=== PATIENT | female | born 1950 | race Caucasian/White ===

== ENCOUNTER 2018-02-21 12:03 | Emergency (ER) | payer OTHER ==
[~2018-02-21] VITALS: Ht 165.1 cm; Wt 81.2 kg
--- NOTE | 2018-02-21 12:04 | NUR ---
ESCOBAR FROM HOME DT HEADACHE AND NECK PAIN SINCE THIS MORNING,. PATIENT REPORTED HAVING CHILLS THIS AM. PATIENT IS AWAKE AND ALERT, APPEARS IN NO DISTRESS. RESPIRATION EVEN AND UNLABORED. AFEBRILE. VSS
[2018-02-21] MEDS ORDERED: LEVO50TA8 PO (12:14)
[2018-02-21] MEDS ORDERED: IV NS 0.9% 1,000 ML BAG IV ONE (12:30)
[2018-02-21 12:34] LABS: BASOPHILS # (AUTO) 0.1 /CMM (0.0-0.2); BASOPHILS % (AUTO) 1.4 % (0.0-2.0); EOSINOPHILS % (AUTO) 0.3 % (0.0-6.0); HEMATOCRIT 40 % (33-45); HEMOGLOBIN 13.8 g/dL (11.5-14.8); LYMPHOCYTES # (AUTO) 0.7 /CMM (0.8-4.8); LYMPHOCYTES % (AUTO) 7.1 % (20.0-44.0); MEAN CORPUSCULAR HGB CONC 35 g/dl (31.0-36.0); MEAN CORPUSCULAR VOLUME 90 fL (82-100); MONOCYTES # (AUTO) 0.5 /CMM (0.1-1.30); MONOCYTES % (AUTO) 5.2 % (2.0-12.0); NEUTROPHILS # (AUTO) 9.1 /CMM (1.8-8.9); PLATELET COUNT (AUTO) 102 /CMM (150-450); RDW COEFFICIENT OF VARIATION 12.5 (11.5-15.0); RED BLOOD CELL COUNT(AUTO) 4.43 MIL/uL (4.0-5.2); WHITE BLOOD COUNT (AUTO) 10.4 K/uL (4.3-11.0)
--- NOTE | 2018-02-21 12:44 | NUR ---
URINE SAMPLE SENT TO LAB
[2018-02-21 12:45] LABS: ALANINE AMINOTRANSFERASE 20 U/L (12-78); ALBUMIN 3.7 g/dL (3.4-5.0); ALKALINE PHOSPHATASE 125 U/L (46-116); ASPARTATE AMINOTRANSFERASE 18 U/L (15-37); BILIRUBIN,DIRECT 0.2 mg/dL (0.0-0.2); BILIRUBIN,TOTAL 1.2 mg/dL (0.2-1.0); CALCIUM, SERUM 9.7 mg/dL (8.5-10.1); CARBON DIOXIDE 26 mmol/L (21-32); CHLORIDE 103 mmol/L (98-107); CREATININE 0.9 mg/dL (0.6-1.3); GLUCOSE 144 mg/dL (74-106); POTASSIUM 3.8 mmol/L (3.5-5.1); SODIUM SERUM 136 mmol/L (136-145); TOTAL PROTEIN, SERUM 7.6 g/dL (6.4-8.2); UREA NITROGEN, BLOOD 20 mg/dL (7-18)
[2018-02-21 12:47] LABS: INR 0.9 (0.85-1.15)
[2018-02-21 12:56] LABS: APPEARANCE,URINE Slightly Cloudy (CLEAR); BILIRUBIN,URINE Negative (NEGATIVE); BLOOD, URINE Moderate Ery/uL (NEGATIVE); COLOR,URINE Yellow (YELLOW); KETONES,URINE Trace (NEGATIVE); LEUKOCYTE ESTERASE ,URINE Moderate (NEGATIVE); NITRITE, URINE Positive (NEGATIVE); PROTEIN,URINE 100 mg/dl (NEGATIVE); UGLUCOSE Negative (NEGATIVE); UROBILINOGEN,URINE 0.2 EU/dL (0.2)
--- NOTE | 2018-02-21 13:03 | NUR ---
PATIENT REFUSED BLOOD PRESSURE RECHECK. EXPLAINED RISKS AND BENEFITS.
[2018-02-21 13:08] LABS: TROPONIN I < 0.017 ng/mL (0.00-0.056)
[2018-02-21 13:09] LABS: BACTERIA,URINE 4+ /HPF (None Seen); SQUAMOUS EPITHELIAL CELL,UR Few /HPF (None Seen); WBC,URINE 21-50 /HPF (0-3)
--- NOTE | 2018-02-21 13:49 | NUR ---
Patient discharged to home in stable condition. Written and verbal after care instructions given. Patient verbalizes understanding of instruction.IV removed. Catheter intact and site benign. Pressure and 4x4 applied to site. No bleeding noted.
[2018-02-21 13:50] VITALS: BP 124/80
== END 2018-02-21 13:50 | disposition home or self-care (01) ==
LOC: ER 12:05
DX: N39.0 Urinary tract infection, site not specified (principal); E03.9 Hypothyroidism, unspecified; R79.1 Abnormal coagulation profile; Z88.0 Allergy status to penicillin; Z88.5 Allergy status to narcotic agent; Z60.2 Problems related to living alone
CPT/HCPCS: 36415; 80048-TC; 80076-TC; 81000-TC; 83605-TC; 84484-TC; 85025-TC; 85730-TC; 87040-TC; 87086-TC; 87186-TC; A4606; J7030; Z7610

== ENCOUNTER 2022-02-23 15:53 | Emergency (ER) | payer OTHER ==
[~2022-02-23] VITALS: Ht 167.6 cm; Wt 77.1 kg
[~2022-02-23 15:53] MED LIST: LEVO50TA8 PO
--- NOTE | 2022-02-23 18:50 | NUR ---
Approx 1-1.5 in abrasion on posterior surface on Rt forearm cleansed with copius amounts NS/Betadine anticeptic soln. All dried blood removed from wound. Bacitracin applied with adaptix, sterile bulky 4x4s and wrapped with 3 in kerlix. pt had good cap refil and cms before and after application of wound dressing. Education on proper management and wound care given. Pt acknowledged understanding of instructions.
--- NOTE | 2022-02-23 19:10 | NUR ---
Pt given DC instructios and confirmed understanding of instructions. last Vs stable, PE WNL, all questions answered before signing out. Pt wheeled out to taxi by EMT without difficulty. No s/sxof distress present. Pt very happy with services rendered/
[2022-02-23 20:36] VITALS: BP 132/85
== END 2022-02-23 19:20 | disposition home or self-care (01) ==
LOC: ER 15:59
DX: S00.03XA Contusion of scalp, initial encounter (principal); M79.7 Fibromyalgia; E03.9 Hypothyroidism, unspecified; Z88.8 Allergy status to other drugs, medicaments and biological substances; Z60.2 Problems related to living alone; Z79.899 Other long term (current) drug therapy; W01.0XXA Fall on same level from slipping, tripping and stumbling without subsequent striking against object, initial encounter; Y93.89 Activity, other specified; Y92.89 Other specified places as the place of occurrence of the external cause; Y99.8 Other external cause status
CPT/HCPCS: 70450-TC; 72125-TC

== ENCOUNTER 2022-07-05 13:23 | Emergency (ER) | payer OTHER ==
[~2022-07-05] VITALS: Ht 167.6 cm; Wt 77.1 kg
--- NOTE | 2022-07-05 14:16 | NUR ---
REceived pt 71 yrs female came from home c/o painfuly in [facility] area awake and alert
--- NOTE | 2022-07-05 14:17 | NUR ---
Examine by provider
--- NOTE | 2022-07-05 14:34 | NUR ---
IV line established on LAC g20
--- NOTE | 2022-07-05 15:15 | NUR ---
PT C/O unable to urinate since this morning Inserted F/C FR # 16 no diffeculty OUT PUT 450 ML UA sent to lab
[2022-07-05 15:22] LABS: BASOPHILS % (AUTO) 0.3 % (0.0-2.0); EOSINOPHILS % (AUTO) 1.2 % (0.0-6.0); HEMATOCRIT 41 % (33-45); HEMOGLOBIN 13.6 g/dL (11.5-14.8); LYMPHOCYTES # (AUTO) 0.8 K/uL (0.8-4.8); LYMPHOCYTES % (AUTO) 13.1 % (20.0-44.0); MEAN CORPUSCULAR HGB CONC 33 g/dl (31.0-36.0); MEAN CORPUSCULAR VOLUME 91 fL (82-100); MONOCYTES # (AUTO) 0.4 K/uL (0.1-1.30); MONOCYTES % (AUTO) 6.9 % (2.0-12.0); NEUTROPHILS % (AUTO) 78.5 % (43.0-81.0); PLATELET COUNT (AUTO) 108 K/uL (150-450); RED BLOOD CELL COUNT(AUTO) 4.51 MIL/uL (4.0-5.2); WHITE BLOOD COUNT (AUTO) 6.4 K/uL (4.3-11.0)
[2022-07-05 15:38] LABS: CALCIUM, SERUM 9.5 mg/dL (8.5-10.1); CREATININE 0.9 mg/dL (0.6-1.3); POTASSIUM 3.7 mmol/L (3.5-5.1)
[2022-07-05 15:45] LABS: ALBUMIN 3.6 g/dL (3.4-5.0); BILIRUBIN,DIRECT 0.1 mg/dL (0.0-0.2); BILIRUBIN,TOTAL 0.5 mg/dL (0.2-1.0); TOTAL PROTEIN, SERUM 6.9 g/dL (6.4-8.2)
[2022-07-05 16:05] LABS: BILIRUBIN,URINE NEGATIVE (NEGATIVE); COLOR,URINE YELLOW (YELLOW); LEUKOCYTE ESTERASE ,URINE NEGATIVE (NEGATIVE); NITRITE, URINE NEGATIVE (NEGATIVE); PH,URINE 5.5 (5.0-8.0); PROTEIN,URINE NEGATIVE (NEGATIVE); UGLUCOSE NEGATIVE (NEGATIVE); UROBILINOGEN,URINE 0.2 EU/dL (0.2)
--- NOTE | 2022-07-05 16:35 | NUR ---
PT requsted to D/C FC DONE 10ML WATER OUT F/C BALLON DEFLATED
--- NOTE | 2022-07-05 16:39 | NUR ---
CALLED JESSICA AT [phone], LEFT .
--- NOTE | 2022-07-05 16:41 | NUR ---
CALLED MALLORY LOPEZ 20 MIN.
[2022-07-05 17:45] VITALS: BP 103/61
== END 2022-07-05 17:46 | disposition home or self-care (01) ==
LOC: ER 13:26
DX: R33.9 Retention of urine, unspecified (principal); M79.7 Fibromyalgia; E03.9 Hypothyroidism, unspecified; Z88.0 Allergy status to penicillin; Z88.5 Allergy status to narcotic agent; Z60.2 Problems related to living alone; Z79.899 Other long term (current) drug therapy
CPT/HCPCS: 36415; 80048-TC; 80076-TC; 83690-TC; 85025-TC

== ENCOUNTER 2022-11-02 09:25 | Emergency (ER) | payer OTHER ==
[~2022-11-02] VITALS: Ht 162.6 cm; Wt 54.4 kg
--- NOTE | 2022-11-02 09:30 | NUR ---
RECEIVED PT 72 YRS FEMALE Came by adela from home s/p tripe and fell lauceration on RT SIDE OF forhead awake and alert no loss contion
--- NOTE | 2022-11-02 09:45 | NUR ---
SEEN BY DR. Olguin
--- NOTE | 2022-11-02 09:50 | NUR ---
BLOOD DROW BY LAB TACH
--- NOTE | 2022-11-02 09:55 | NUR ---
OUND CLEAN AND IRREGATED BY LAB TACH
[2022-11-02] MEDS ORDERED: ACETAMINOPHEN ES 500 MG TABLET PO ONE (10:00)
--- NOTE | 2022-11-02 10:00 | NUR ---
TO CT SCAN OF HEAD via obdulia rabago vs
[2022-11-02] MEDS ORDERED: ACETAMINOPHEN ES 500 MG TABLET ONE (10:07)
[2022-11-02] MEDS ORDERED: LIDOCAINE 0.5%-EPI 1:200,000 50 ML VIAL ONE (10:07)
[2022-11-02 10:19] LABS: BASOPHILS % (AUTO) 0.3 % (0.0-2.0); EOSINOPHILS % (AUTO) 0.4 % (0.0-6.0); HEMATOCRIT 41 % (33-45); HEMOGLOBIN 13.5 g/dL (11.5-14.8); LYMPHOCYTES # (AUTO) 0.6 K/uL (0.8-4.8); LYMPHOCYTES % (AUTO) 9.1 % (20.0-44.0); MEAN CORPUSCULAR HGB CONC 33 g/dl (31.0-36.0); MEAN CORPUSCULAR VOLUME 93 fL (82-100); MONOCYTES # (AUTO) 0.4 K/uL (0.1-1.30); MONOCYTES % (AUTO) 5.8 % (2.0-12.0); NEUTROPHILS # (AUTO) 5.1 K/uL (1.8-8.9); NEUTROPHILS % (AUTO) 84.4 % (43.0-81.0); PLATELET COUNT (AUTO) 102 K/uL (150-450); RED BLOOD CELL COUNT(AUTO) 4.45 MIL/uL (4.0-5.2); WHITE BLOOD COUNT (AUTO) 6.1 K/uL (4.3-11.0)
[2022-11-02 10:27] LABS: CALCIUM, SERUM 9.7 mg/dL (8.5-10.1); CARBON DIOXIDE 28 mmol/L (21-32); CHLORIDE 107 mmol/L (98-107); CREATININE 0.9 mg/dL (0.6-1.3); GLUCOSE 121 mg/dL (74-106); POTASSIUM 4.3 mmol/L (3.5-5.1); SODIUM SERUM 140 mmol/L (136-145); UREA NITROGEN, BLOOD 17 mg/dL (7-18)
--- NOTE | 2022-11-02 10:40 | NUR ---
AT BED SIDE STABLE APPLE ON RT SIDE OF FORHEAD tolorated procedure skin intact and dry
--- NOTE | 2022-11-02 10:55 | NUR ---
Allegra prado in [facility] - 11/02/22 at 1126 by ORACIO WOUND CLEAN AND IRREGATED BY LAB TACH
--- NOTE | 2022-11-02 10:56 | NUR ---
ROSARIO [phone] COUSIN.
--- NOTE | 2022-11-02 11:27 | NUR ---
CALLED JESSICA PALMER LEFT MASSAGE IN [facility]
--- NOTE | 2022-11-02 11:59 | NUR ---
CALLED GUALBERTO LEFT MASSAGE
--- NOTE | 2022-11-02 13:14 | NUR ---
ASSISST PT TO AMBLATE PT UNSTAADY AT THIS TIME
--- NOTE | 2022-11-02 13:39 | NUR ---
PT UNABLE TO AMBLATE WITH WALKER DR JONY MCKEON PLAN TO ADMIT PT INPT CALLED AJI ( JESSICA PALMER ) ABOUT [facility]KE PENNY
--- NOTE | 2022-11-02 13:56 | NUR ---
[facility] [phone]
--- NOTE | 2022-11-02 13:59 | NUR ---
COVID SWAB SENT TO LAB
--- NOTE | 2022-11-02 14:54 | NUR ---
[facility] [phone] CALLBACK
--- NOTE | 2022-11-02 15:21 | NUR ---
CALLED [facility] [phone] LEFT VM.
--- NOTE | 2022-11-02 16:20 | NUR ---
NO PAIN WATING FOR ROOM
--- NOTE | 2022-11-02 17:44 | NUR ---
PT AGREEABLE TO GO TO [facility]. BLS TRANSPORT WILL ARRIVE AT 2100 WITH [facility]. PER [facility] CEDILLO REGAL. [phone] [facility] [address] [id number] CALL [phone] FOR REPORT OPTION 7 EMMY ESTES.
--- NOTE | 2022-11-02 18:03 | NUR ---
CALLED [phone] HAND OFF TO( FRANKLYN BOOTH ) PT AWAKE AND ALERT NO PAIN
[2022-11-02 19:10] VITALS: BP 111/71
--- NOTE | 2022-11-02 19:25 | NUR ---
HAND OFF MENDEL BOOTH
--- NOTE | 2022-11-02 20:12 | NUR ---
PATIENT TRANSFERRED TO [facility] VIA AMBULANCE ACCOMPANIED BY 3 NATURAL GAS INSPECTOR, REPORT GIVEN TO EMT CREW, PATIENT LEFT WITH VITALS WNL.
== END 2022-11-02 20:14 ==
LOC: ER 09:54
DX: S01.01XA Laceration without foreign body of scalp, initial encounter (principal); S09.90XA Unspecified injury of head, initial encounter; W01.10XA Fall on same level from slipping, tripping and stumbling with subsequent striking against unspecified object, initial encounter; Y92.199 Unspecified place in other specified residential institution as the place of occurrence of the external cause; Z88.6 Allergy status to analgesic agent; Z88.0 Allergy status to penicillin; E03.9 Hypothyroidism, unspecified; M79.7 Fibromyalgia; R33.9 Retention of urine, unspecified; G20 Parkinson's disease; Z79.890 Hormone replacement therapy; R26.81 Unsteadiness on feet; Z20.822 Contact with and (suspected) exposure to COVID-19
CPT/HCPCS: 99285; 70450; 87426; 85025; 80048; 36415; 84484; 87081; 12001; 93005; J3490; A6403 ×2; C9803

== ENCOUNTER 2022-11-29 11:22 | Emergency (ER) | payer OTHER ==
[~2022-11-29] VITALS: Ht 170.2 cm; Wt 53.1 kg
--- NOTE | 2022-11-29 11:40 | NUR ---
RECEVED PT CAME BY PRAMDIC FOR s/p fall down and c/o pain on rt hip and lt arm awake and alert moving all extramity no pain
[2022-11-29] MEDS ORDERED: ACETAMINOPHEN ES 500 MG TABLET ONE (12:12)
[2022-11-29] MEDS ORDERED: ACETAMINOPHEN ES 500 MG TABLET PO ONE (12:30)
--- NOTE | 2022-11-29 12:35 | NUR ---
to CT SCAN
--- NOTE | 2022-11-29 13:20 | NUR ---
tolorated po intack
--- NOTE | 2022-11-29 14:11 | NUR ---
CALLED FELIPE GARCES left massge
--- NOTE | 2022-11-29 14:23 | NUR ---
Patient discharged to home in stable condition. Written and verbal after care instructions given. Patient verbalizes understanding of instruction.
--- NOTE | 2022-11-29 14:25 | NUR ---
[facility] CALLED FOR BLS TRANSPORT, ETA 75-90 MINUTES PER SKYLER.
--- NOTE | 2022-11-29 15:30 | NUR ---
D/C HOME BY AMBLANCE AWAKE AND ALERT
[2022-11-29 15:48] VITALS: BP 111/72
== END 2022-11-29 15:49 | disposition home or self-care (01) ==
LOC: ER 11:28
DX: S09.90XA Unspecified injury of head, initial encounter (principal); M25.551 Pain in right hip; G20 Parkinson's disease; E03.9 Hypothyroidism, unspecified; G51.0 Bell's palsy; Z88.0 Allergy status to penicillin; Z88.5 Allergy status to narcotic agent; W01.0XXA Fall on same level from slipping, tripping and stumbling without subsequent striking against object, initial encounter; Y93.89 Activity, other specified; Y92.89 Other specified places as the place of occurrence of the external cause; Y99.8 Other external cause status
CPT/HCPCS: 70450-TC; 72125-TC; 73502

== ENCOUNTER 2023-01-19 08:28 | Emergency (ER) | payer OTHER ==
[~2023-01-19] VITALS: Ht 170.2 cm; Wt 52.6 kg
--- NOTE | 2023-01-19 08:45 | NUR ---
Malachi LOPEZx4 able to express her concerns. Malachi states she has hx of multiple falls. Discussed plan of care, patient verbalized agreement. Crashcart at bedside rios to vital signs. Malachi proved helaht history to MD, ER team at bedside. All safety precautions taken.
[2023-01-19 08:59] LABS: BASOPHILS % (AUTO) 0.5 % (0.0-2.0); EOSINOPHILS % (AUTO) 0.8 % (0.0-6.0); HEMATOCRIT 47 % (33-45); HEMOGLOBIN 14.6 g/dL (11.5-14.8); LYMPHOCYTES # (AUTO) 1.4 K/uL (0.8-4.8); LYMPHOCYTES % (AUTO) 22.1 % (20.0-44.0); MEAN CORPUSCULAR HGB CONC 32 g/dl (31.0-36.0); MEAN CORPUSCULAR VOLUME 97 fL (82-100); MONOCYTES # (AUTO) 0.4 K/uL (0.1-1.30); MONOCYTES % (AUTO) 5.8 % (2.0-12.0); NEUTROPHILS # (AUTO) 4.6 K/uL (1.8-8.9); NEUTROPHILS % (AUTO) 70.8 % (43.0-81.0); PLATELET COUNT (AUTO) 114 K/uL (150-450); WHITE BLOOD COUNT (AUTO) 6.4 K/uL (4.3-11.0)
[2023-01-19] MEDS ORDERED: IV NS 0.9% 1,000 ML BAG IV ONE (09:00)
[2023-01-19] MEDS ORDERED: ADENOSINE 6 MG/2 ML VIAL ONE (09:00)
[2023-01-19] MEDS ORDERED: ADENOSINE 6 MG/2 ML VIAL IVP ONE (09:00)
[2023-01-19 09:07] LABS: CALCIUM, SERUM 10.1 mg/dL (8.5-10.1); CARBON DIOXIDE 26 mmol/L (21-32); CHLORIDE 104 mmol/L (98-107); CREATININE 0.9 mg/dL (0.6-1.3); GLUCOSE 109 mg/dL (74-106); POTASSIUM 4.3 mmol/L (3.5-5.1); SODIUM SERUM 137 mmol/L (136-145); UREA NITROGEN, BLOOD 17 mg/dL (7-18)
[2023-01-19 09:14] LABS: ALANINE AMINOTRANSFERASE 20 U/L (12-78); ALBUMIN 3.8 g/dL (3.4-5.0); ALKALINE PHOSPHATASE 73 U/L (46-116); ASPARTATE AMINOTRANSFERASE 26 U/L (15-37); BILIRUBIN,DIRECT 0.1 mg/dL (0.0-0.2); TOTAL PROTEIN, SERUM 7.1 g/dL (6.4-8.2)
--- NOTE | 2023-01-19 10:07 | NUR ---
CARDIOLOGY CALLED DR. JANELLE LAMA.
--- NOTE | 2023-01-19 10:16 | NUR ---
DR LUIS CREAMERY WORKER AT BEDSIDE FOR EVAL. PATIENT IS NOT ON ANY ABNORMAL CARDIAC RHYTHM PER DR LUIS AFTER COMPARING TWO DIFFERENT CARDIAC MONITORS. ER AWARE.
--- NOTE | 2023-01-19 10:30 | NUR ---
MOVE SHEET SUBMITTED.
--- NOTE | 2023-01-19 10:40 | NUR ---
COVID SWAB COLLECTED AND SENT TO LAB
--- NOTE | 2023-01-19 10:54 | NUR ---
CARLY ALEJANDRE BLOW MOLDER - [phone]. ( FAX ) [phone] . CLINICALS GIVEN
--- NOTE | 2023-01-19 12:23 | NUR ---
Spoke with pt about possible SNF placement, states she does not want to go to a facility. Would like to go home and care for herself, educated on importance of following protocol due to her multiple falls. Robin mujica she is capable of making her own decisions and placing her would be "kidnapping" . Patient aware of safety precautions and would like to proceed with discharge to home asking for a cab to take her. Patient is AOx4.
--- NOTE | 2023-01-19 12:26 | NUR ---
CARLY CEDILLO [phone]
--- NOTE | 2023-01-19 14:06 | NUR ---
PT PASSED ROAD TEST WITH WALKER AND NO ASSISTANCE FROM STAFF, ER DOCTOR AND CM CARLY NOTIFIED
--- NOTE | 2023-01-19 14:09 | NUR ---
CALLED [facility] ETA 15:30
--- NOTE | 2023-01-19 14:12 | NUR ---
NGUYEN CARROLL NOTIFIED FOR TRANSPORT ETA
[2023-01-19 15:38] VITALS: BP 110/72
== END 2023-01-19 15:52 | disposition home or self-care (01) ==
LOC: ER 08:59
DX: S09.8XXA Other specified injuries of head, initial encounter (principal); G20 Parkinson's disease; E03.9 Hypothyroidism, unspecified; G51.0 Bell's palsy; Z60.2 Problems related to living alone; Z79.899 Other long term (current) drug therapy; Z20.822 Contact with and (suspected) exposure to COVID-19; Z88.0 Allergy status to penicillin; Z88.1 Allergy status to other antibiotic agents; W01.0XXA Fall on same level from slipping, tripping and stumbling without subsequent striking against object, initial encounter; Y93.89 Activity, other specified; Y92.89 Other specified places as the place of occurrence of the external cause; Y99.8 Other external cause status
CPT/HCPCS: 99285; 72125; 96360; 71045; 87426; 93005 ×3; 70450; 85025; 80048; 80076; 36415; 84484; J7030; A4223; C9803; J0153

== ENCOUNTER 2023-07-09 15:32 | Emergency (ER) | payer OTHER ==
[~2023-07-09] VITALS: Ht 172.7 cm; Wt 56.7 kg
[2023-07-09 17:04] LABS: BASOPHILS % (AUTO) 0.3 % (0.0-2.0); EOSINOPHILS # (AUTO) 0.1 K/uL (0.0-0.7); EOSINOPHILS % (AUTO) 1.6 % (0.0-6.0); HEMATOCRIT 46 % (33-45); HEMOGLOBIN 15.1 g/dL (11.5-14.8); LYMPHOCYTES # (AUTO) 1.3 K/uL (0.8-4.8); LYMPHOCYTES % (AUTO) 13.7 % (20.0-44.0); MEAN CORPUSCULAR HEMOGLOBIN 32 PG (26.0-33.0); MEAN CORPUSCULAR HGB CONC 33 g/dl (31.0-36.0); MEAN CORPUSCULAR VOLUME 96 fL (82-100); MONOCYTES # (AUTO) 0.6 K/uL (0.1-1.30); MONOCYTES % (AUTO) 6.9 % (2.0-12.0); NEUTROPHILS # (AUTO) 7.1 K/uL (1.8-8.9); NEUTROPHILS % (AUTO) 77.5 % (43.0-81.0); PLATELET COUNT (AUTO) 148 K/uL (150-450); RED BLOOD CELL COUNT(AUTO) 4.72 MIL/uL (4.0-5.2); RED CELL DISTRIBUTION WIDTH 13.2 % (11.5-15.0); WHITE BLOOD COUNT (AUTO) 9.1 K/uL (4.3-11.0)
[2023-07-09 17:09] LABS: CALCIUM, SERUM 9.8 mg/dL (8.5-10.1); CARBON DIOXIDE 21 mmol/L (21-32); CHLORIDE 104 mmol/L (98-107); CREATININE 1.5 mg/dL (0.6-1.3); GLUCOSE 118 mg/dL (74-106); POTASSIUM 4.4 mmol/L (3.5-5.1); SODIUM SERUM 137 mmol/L (136-145); UREA NITROGEN, BLOOD 47 mg/dL (7-18)
[2023-07-09] MEDS ORDERED: LEVOFLOXACIN (250MG) 250 MG TABLET PO ONE (18:00)
[2023-07-09] MEDS ORDERED: LEVOFLOXACIN (250MG) 250 MG TABLET ONE (18:18)
[2023-07-09 20:29] VITALS: BP 104/74; TEMP 98.1; O2SAT 98
== END 2023-07-09 20:29 | disposition home or self-care (01) ==
LOC: ER 15:33
DX: F41.9 Anxiety disorder, unspecified (principal); R05.9 Cough, unspecified; G20.A1 Parkinson's disease without dyskinesia, without mention of fluctuations; E03.9 Hypothyroidism, unspecified; Z79.899 Other long term (current) drug therapy; Z60.2 Problems related to living alone; Z88.0 Allergy status to penicillin; Z88.5 Allergy status to narcotic agent
CPT/HCPCS: 36415; 71045-TC; 80048-TC; 85025-TC

== ENCOUNTER 2023-07-19 15:13 | Inpatient (IN) | payer MEDICARE ==
[~2023-07-19] VITALS: Ht 172.7 cm; Wt 44.5 kg
[2023-07-19] MEDS ORDERED: MIDODRINE HCL (5MG) 5 MG TABLET PO STA (15:22)
[2023-07-19 15:38] LABS: BASOPHILS % (AUTO) 0.2 % (0.0-2.0); HEMATOCRIT 53 % (33-45); HEMOGLOBIN 17.8 g/dL (11.5-14.8); LYMPHOCYTES # (AUTO) 0.9 K/uL (0.8-4.8); LYMPHOCYTES % (AUTO) 4.4 % (20.0-44.0); MEAN CORPUSCULAR HEMOGLOBIN 32 PG (26.0-33.0); MEAN CORPUSCULAR HGB CONC 34 g/dl (31.0-36.0); MEAN CORPUSCULAR VOLUME 94 fL (82-100); MONOCYTES # (AUTO) 1.1 K/uL (0.1-1.30); MONOCYTES % (AUTO) 5.5 % (2.0-12.0); NEUTROPHILS # (AUTO) 18.6 K/uL (1.8-8.9); NEUTROPHILS % (AUTO) 89.9 % (43.0-81.0); PLATELET COUNT (AUTO) 155 K/uL (150-450); RED BLOOD CELL COUNT(AUTO) 5.63 MIL/uL (4.0-5.2); RED CELL DISTRIBUTION WIDTH 13.3 % (11.5-15.0); WHITE BLOOD COUNT (AUTO) 20.8 K/uL (4.3-11.0)
[2023-07-19] MEDS ORDERED: IV NS 0.9% 1,000 ML BAG IV ONE (16:00)
[2023-07-19 16:01] LABS: INR 1.07 (0.91-1.10); PARTIAL THROMBOPLASTIN TIME 28.9 SEC (24.3-34.3); PROTHROMBIN TIME 11.3 SECS (9.2-11.1)
[2023-07-19 16:02] LABS: LACTIC ACID 2.2 mmol/L (0.4-2.0)
[2023-07-19] MEDS ORDERED: MIDODRINE HCL (5MG) 5 MG TABLET ONE (16:04)
[2023-07-19 16:29] LABS: APPEARANCE,URINE CLOUDY (CLEAR); BILIRUBIN,URINE 2+ (NEGATIVE); BLOOD, URINE 3+ Ery/uL (NEGATIVE); COLOR,URINE RED (YELLOW); KETONES,URINE TRACE mg/dL (NEGATIVE); LEUKOCYTE ESTERASE ,URINE 2+ (NEGATIVE); NITRITE, URINE POSITIVE (NEGATIVE); PROTEIN,URINE 3+ mg/dl (NEGATIVE); UGLUCOSE TRACE mg/dL (NEGATIVE)
[2023-07-19] MEDS ORDERED: AZTREONAM 2 G in IV NS 0.9% 100 ML IV ONE (16:30)
[2023-07-19] MEDS ORDERED: VANCOMYCIN 1 GM in IV D5W 250 ML IV ONE (16:30)
[2023-07-19 16:42] LABS: ADD URINE CULTURE YES; BACTERIA,URINE Moderate /HPF (None Seen); RBC,URINE TOO NUMEROUS TO COUN /HPF (0-2)
[2023-07-19] MEDS ORDERED: CARB1TAB31 PO (17:10)
[2023-07-19] MEDS ORDERED: OXYB5TAB16 PO (17:10)
[2023-07-19 17:29] LABS: ALANINE AMINOTRANSFERASE 17 U/L (12-78); ALBUMIN 3.3 g/dL (3.4-5.0); ALKALINE PHOSPHATASE 69 U/L (46-116); ASPARTATE AMINOTRANSFERASE 17 U/L (15-37); BILIRUBIN,DIRECT 0.2 mg/dL (0.0-0.2); BILIRUBIN,TOTAL 0.9 mg/dL (0.2-1.0); CALCIUM, SERUM 9.6 mg/dL (8.5-10.1); CARBON DIOXIDE 17 mmol/L (21-32); CHLORIDE 106 mmol/L (98-107); CREATININE 4.4 mg/dL (0.6-1.3); GLUCOSE 110 mg/dL (74-106); NT-PRO BNP 5326 pg/mL (0-125); SODIUM SERUM 140 mmol/L (136-145); TOTAL PROTEIN, SERUM 6.7 g/dL (6.4-8.2)
[2023-07-19 17:44] LABS: POTASSIUM 6.4 mmol/L (3.5-5.1); UREA NITROGEN, BLOOD 179 mg/dL (7-18)
[2023-07-19] MEDS ORDERED: Calcium Gluconate 1GM/10ML 4.65 MEQ in IV NS 0.9% 100 ML IV ONE (18:00)
[2023-07-19] MEDS ORDERED: IV D5/0.45 NACL 500 ML IV ONE (18:00)
[2023-07-19] MEDS ORDERED: INSULIN REGULAR, HUMAN 100 UNIT/ML 10 ML VIAL SQ ONE (18:00)
[2023-07-19] MEDS ORDERED: FUROSEMIDE 40 MG/4 ML VIAL IV ONE (18:00)
[2023-07-19] MEDS ORDERED: INSULIN REGULAR, HUMAN 100 UNIT/ML 10 ML VIAL ONE (18:14)
[2023-07-19] MEDS ORDERED: FUROSEMIDE 40 MG/4 ML VIAL ONE (18:14)
[2023-07-19] MEDS ORDERED: AZITHROMYCIN 500 MG in IV D5W 250 ML IV SCH ×2 (19:30→22:00)
[2023-07-19] MEDS ORDERED: MORPHINE SULFATE INJ 2 MG/ML DISP.SYRIN IV PRN (19:30)
[2023-07-19] MEDS ORDERED: hydrALAZINE HCL IV 20 MG VIAL IV PRN (19:30)
[2023-07-19] MEDS: IV NS 0.9% 1,000 ML IV SCH (19:30)
[2023-07-19] MEDS ORDERED: ALBUTEROL FS 2.5 MG/0.5 ML VIAL.NEB NEB PRN (19:30)
[2023-07-19] MEDS ORDERED: ACETAMINOPHEN 325 MG TABLET PO PRN (19:30)
[2023-07-19] MEDS ORDERED: ONDANSETRON HCL/PF 4 MG/2 ML VIAL IVP PRN (19:30)
[2023-07-19 19:58] LABS: BASOPHILS % (AUTO) 0.1 % (0.0-2.0); EOSINOPHILS % (AUTO) 0.1 % (0.0-6.0); HEMATOCRIT 44 % (33-45); HEMOGLOBIN 14.4 g/dL (11.5-14.8); MEAN CORPUSCULAR HEMOGLOBIN 32 PG (26.0-33.0); MEAN CORPUSCULAR HGB CONC 33 g/dl (31.0-36.0); MEAN CORPUSCULAR VOLUME 96 fL (82-100); MONOCYTES % (AUTO) 4.9 % (2.0-12.0); NEUTROPHILS # (AUTO) 17.7 K/uL (1.8-8.9); NEUTROPHILS % (AUTO) 89.9 % (43.0-81.0); PLATELET COUNT (AUTO) 92 K/uL (150-450); RED BLOOD CELL COUNT(AUTO) 4.58 MIL/uL (4.0-5.2); RED CELL DISTRIBUTION WIDTH 13.1 % (11.5-15.0); WHITE BLOOD COUNT (AUTO) 19.7 K/uL (4.3-11.0)
[2023-07-19 20:18] LABS: ALANINE AMINOTRANSFERASE 12 U/L (12-78); ALBUMIN 2.5 g/dL (3.4-5.0); ALKALINE PHOSPHATASE 60 U/L (46-116); ASPARTATE AMINOTRANSFERASE 17 U/L (15-37); BILIRUBIN,TOTAL 0.7 mg/dL (0.2-1.0); CALCIUM, SERUM 9.1 mg/dL (8.5-10.1); CARBON DIOXIDE 14 mmol/L (21-32); CHLORIDE 109 mmol/L (98-107); CREATININE 3.9 mg/dL (0.6-1.3); GLUCOSE 133 mg/dL (74-106); POTASSIUM 5.9 mmol/L (3.5-5.1); SODIUM SERUM 138 mmol/L (136-145); TOTAL PROTEIN, SERUM 5.7 g/dL (6.4-8.2)
[2023-07-19 20:37] LABS: UREA NITROGEN, BLOOD 164 mg/dL (7-18)
[2023-07-19 20:42] LABS: LYMPHOCYTES % (MANUAL) 9 % (16-48); MONOCYTES % (MANUAL) 4 % (0-11.0); NEUTROPHILS % (MANUAL) 87 (42-76)
[2023-07-19 20:43] LABS: ANISOCYTOSIS 1+; PLATELET ESTIMATE DECREASED
[2023-07-19] MEDS ORDERED: HEPARIN SODIUM, PORCINE 5000 UNITS/1 ML VIAL SQ SCH (21:00)
[2023-07-19] MEDS ORDERED: CEFEPIME 1 GM in IV D5W 50 ML IV ONE (22:00)
[2023-07-19] MEDS ORDERED: MIDODRINE HCL (5MG) 5 MG TABLET PO PRN (23:30)
[2023-07-19] MEDS ORDERED: SODIUM BICARBONATE SYR 50 MEQ/50 ML DISP.SYRIN IV ONE (23:30)
[2023-07-19] MEDS ORDERED: SODIUM POLYSTYRENE SULFONATE 15 G/60 ML BOTTLE PO ONE (23:30)
[2023-07-19 23:47] LABS: SITE, VBG Other; VBG BASE EXCESS -14.5 mmol/L (-3-3); VBG COHb 0.2 %; VBG MetHb 0.3 %; VBG O2Hb 78.2 %; VBG OXYGEN SATURATION 78.6 %; VBG PCO2 22.3 mmHg (40-52); VBG PH 7.278 (7.31-7.41)
[2023-07-20] VITALS (7 sets, daily range): BP systolic 75–138; BP diastolic 45–91; TEMP 97.6–98.6; O2SAT 94–100
[2023-07-20] MEDS ORDERED: SODIUM POLYSTYRENE SULFONATE 15 G/60 ML BOTTLE ONE (00:57)
[2023-07-20 05:48] LABS: EOSINOPHILS % (AUTO) 0.1 % (0.0-6.0); HEMATOCRIT 43 % (33-45); HEMOGLOBIN 14.5 g/dL (11.5-14.8); LYMPHOCYTES # (AUTO) 0.7 K/uL (0.8-4.8); MEAN CORPUSCULAR HEMOGLOBIN 32 PG (26.0-33.0); MEAN CORPUSCULAR HGB CONC 34 g/dl (31.0-36.0); MEAN CORPUSCULAR VOLUME 94 fL (82-100); NEUTROPHILS # (AUTO) 15.4 K/uL (1.8-8.9); NEUTROPHILS % (AUTO) 89.9 % (43.0-81.0); PLATELET COUNT (AUTO) 115 K/uL (150-450); RED BLOOD CELL COUNT(AUTO) 4.51 MIL/uL (4.0-5.2); RED CELL DISTRIBUTION WIDTH 13.1 % (11.5-15.0); WHITE BLOOD COUNT (AUTO) 17.1 K/uL (4.3-11.0)
[2023-07-20 05:56] LABS: ACETONE, SERUM NEGATIVE (NEGATIVE)
[2023-07-20 05:59] LABS: SALICYLATE 1.1 mg/dL (2.8-20.0)
[2023-07-20 06:00] LABS: ACETAMINOPHEN <10 ug/ml (10-30)
[2023-07-20 06:08] LABS: ALANINE AMINOTRANSFERASE 15 U/L (12-78); ALBUMIN 2.7 g/dL (3.4-5.0); ALKALINE PHOSPHATASE 64 U/L (46-116); ASPARTATE AMINOTRANSFERASE 24 U/L (15-37); BILIRUBIN,TOTAL 0.9 mg/dL (0.2-1.0); CALCIUM, SERUM 8.8 mg/dL (8.5-10.1); CARBON DIOXIDE 17 mmol/L (21-32); CHLORIDE 108 mmol/L (98-107); GLUCOSE 91 mg/dL (74-106); MAGNESIUM 2.9 mg/dL (1.8-2.4); PHOSPHORUS 5.5 mg/dL (2.5-4.9); POTASSIUM 4.5 mmol/L (3.5-5.1); SODIUM SERUM 141 mmol/L (136-145); TOTAL PROTEIN, SERUM 5.9 g/dL (6.4-8.2)
[2023-07-20 06:11] LABS: UREA NITROGEN, BLOOD 168 mg/dL (7-18)
[2023-07-20] MEDS: CARBIDOPA/LEVODOPA 10/100 MG 1 UDTAB PO SCH ×2 (08:05→17:39)
[2023-07-20] MEDS: LEVOTHYROXINE SODIUM 50 MCG TABLET PO SCH (08:05)
[2023-07-20] MEDS: CEFEPIME 1 GM in IV D5W 50 ML IV SCH (08:06)
[2023-07-20] MEDS: OXYBUTYNIN CHLORIDE 5 MG TABLET PO SCH ×2 (08:06→17:39)
[2023-07-20] MEDS: HEPARIN SODIUM, PORCINE 5000 UNITS/1 ML VIAL SQ SCH ×3 (08:23→21:34)
[2023-07-20] MEDS ORDERED: IV NS 0.9% 1,000 ML IV ONE ×2 (09:30→19:00)
[2023-07-20] MEDS: AZITHROMYCIN 500 MG in IV D5W 250 ML IV SCH (09:50)
[2023-07-20 15:14] LABS: CARBON DIOXIDE 13 mmol/L (21-32); CHLORIDE 111 mmol/L (98-107); CREATININE 3.8 mg/dL (0.6-1.3); GLUCOSE 116 mg/dL (74-106); POTASSIUM 4.6 mmol/L (3.5-5.1); SODIUM SERUM 140 mmol/L (136-145)
[2023-07-20 15:41] LABS: UREA NITROGEN, BLOOD 161 mg/dL (7-18)
[2023-07-20] MEDS: IV NS 0.9% 1,000 ML IV SCH ×2 (22:10)
[2023-07-21] VITALS: BP 81/44; TEMP 98.2; O2SAT 100
[2023-07-21 04:00] VITALS: BP 104/57; TEMP 98.2; O2SAT 100
[2023-07-21 07:10] LABS: HEMATOCRIT 35 % (33-45); HEMOGLOBIN 11.7 g/dL (11.5-14.8); LYMPHOCYTES # (AUTO) 0.6 K/uL (0.8-4.8); LYMPHOCYTES % (AUTO) 4.9 % (20.0-44.0); MEAN CORPUSCULAR HEMOGLOBIN 32 PG (26.0-33.0); MEAN CORPUSCULAR HGB CONC 34 g/dl (31.0-36.0); MEAN CORPUSCULAR VOLUME 95 fL (82-100); MONOCYTES # (AUTO) 0.7 K/uL (0.1-1.30); MONOCYTES % (AUTO) 5.3 % (2.0-12.0); NEUTROPHILS # (AUTO) 11.3 K/uL (1.8-8.9); NEUTROPHILS % (AUTO) 89.8 % (43.0-81.0); PLATELET COUNT (AUTO) 63 K/uL (150-450); RED BLOOD CELL COUNT(AUTO) 3.69 MIL/uL (4.0-5.2); WHITE BLOOD COUNT (AUTO) 12.6 K/uL (4.3-11.0)
[2023-07-21] MEDS: LEVOTHYROXINE SODIUM 50 MCG TABLET PO SCH (07:30)
[2023-07-21 07:42] LABS: ALANINE AMINOTRANSFERASE 12 U/L (12-78); ALBUMIN 1.9 g/dL (3.4-5.0); ALKALINE PHOSPHATASE 47 U/L (46-116); ASPARTATE AMINOTRANSFERASE 78 U/L (15-37); BILIRUBIN,TOTAL 0.5 mg/dL (0.2-1.0); CALCIUM, SERUM 8.3 mg/dL (8.5-10.1); CARBON DIOXIDE 15 mmol/L (21-32); CHLORIDE 117 mmol/L (98-107); CREATININE 3.3 mg/dL (0.6-1.3); GLUCOSE 76 mg/dL (74-106); MAGNESIUM 2.7 mg/dL (1.8-2.4); POTASSIUM 3.9 mmol/L (3.5-5.1); SODIUM SERUM 147 mmol/L (136-145); TOTAL PROTEIN, SERUM 4.9 g/dL (6.4-8.2)
[2023-07-21 07:43] LABS: UREA NITROGEN, BLOOD 153 mg/dL (7-18)
[2023-07-21 07:56] LABS: CREATINE KINASE, TOTAL 1571 U/L (26-192)
[2023-07-21 08:00] VITALS: BP 109/44; TEMP 97.3; O2SAT 96
[2023-07-21] MEDS: CEFEPIME 1 GM in IV D5W 50 ML IV SCH (08:32)
[2023-07-21] MEDS: CARBIDOPA/LEVODOPA 10/100 MG 1 UDTAB PO SCH ×2 (08:59→16:46)
[2023-07-21] MEDS: OXYBUTYNIN CHLORIDE 5 MG TABLET PO SCH ×2 (08:59→16:46)
[2023-07-21] MEDS: HEPARIN SODIUM, PORCINE 5000 UNITS/1 ML VIAL SQ SCH ×2 (09:06→20:58)
[2023-07-21] MEDS: AZITHROMYCIN 500 MG in IV D5W 250 ML IV SCH (09:25)
[2023-07-21 09:34] LABS: BAND % (MANUAL) 4 % (0.0-5.0); LYMPHOCYTES % (MANUAL) 4 % (16-48); MONOCYTES % (MANUAL) 2 % (0-11.0); NEUTROPHILS % (MANUAL) 90 (42-76); PLATELET ESTIMATE DECREASED
[2023-07-21] MEDS: IV NS 0.9% 1,000 ML IV SCH (11:30)
[2023-07-21 12:00] VITALS: BP 97/55; TEMP 97.5; O2SAT 97
[2023-07-21 14:48] LABS: HIV-1 p24 ANTIGEN NON REACTIVE (NONREACTIVE); HIV-1/2 ANTIBODY NON REACTIVE (NONREACTIVE)
[2023-07-21 16:00] VITALS: BP 101/62; TEMP 97.4; O2SAT 96
[2023-07-21 20:00] VITALS: BP 92/57; TEMP 97.5; O2SAT 98
[2023-07-22] VITALS: BP 90/57; TEMP 97.8; O2SAT 99
[2023-07-22 04:00] VITALS: BP_SYST 102; BP_SYST 95; BP_DIAS 57; BP_DIAS 59; TEMP 98; TEMP 98.1; O2SAT 96; O2SAT 99
[2023-07-22 06:04] LABS: EOSINOPHILS % (AUTO) 0.1 % (0.0-6.0); HEMATOCRIT 38 % (33-45); HEMOGLOBIN 12.5 g/dL (11.5-14.8); LYMPHOCYTES # (AUTO) 0.5 K/uL (0.8-4.8); LYMPHOCYTES % (AUTO) 5.2 % (20.0-44.0); MEAN CORPUSCULAR HEMOGLOBIN 32 PG (26.0-33.0); MEAN CORPUSCULAR HGB CONC 33 g/dl (31.0-36.0); MEAN CORPUSCULAR VOLUME 97 fL (82-100); MONOCYTES # (AUTO) 0.5 K/uL (0.1-1.30); MONOCYTES % (AUTO) 5.4 % (2.0-12.0); NEUTROPHILS # (AUTO) 8.4 K/uL (1.8-8.9); NEUTROPHILS % (AUTO) 89.3 % (43.0-81.0); PLATELET COUNT (AUTO) 59 K/uL (150-450); RED CELL DISTRIBUTION WIDTH 13.9 % (11.5-15.0); WHITE BLOOD COUNT (AUTO) 9.4 K/uL (4.3-11.0)
[2023-07-22 06:11] LABS: ALANINE AMINOTRANSFERASE 35 U/L (12-78); ALBUMIN 1.9 g/dL (3.4-5.0); ALKALINE PHOSPHATASE 53 U/L (46-116); ASPARTATE AMINOTRANSFERASE 114 U/L (15-37); BILIRUBIN,TOTAL 0.6 mg/dL (0.2-1.0); CALCIUM, SERUM 8.6 mg/dL (8.5-10.1); CARBON DIOXIDE 15 mmol/L (21-32); CHLORIDE 121 mmol/L (98-107); CREATININE 2.4 mg/dL (0.6-1.3); GLUCOSE 85 mg/dL (74-106); POTASSIUM 3.4 mmol/L (3.5-5.1); SODIUM SERUM 151 mmol/L (136-145); TOTAL PROTEIN, SERUM 5.3 g/dL (6.4-8.2)
[2023-07-22 06:21] LABS: UREA NITROGEN, BLOOD 141 mg/dL (7-18)
[2023-07-22 06:27] LABS: PTH, INTACT 49 pg/mL (15-65)
[2023-07-22] MEDS: LEVOTHYROXINE SODIUM 50 MCG TABLET PO SCH (07:27)
[2023-07-22 08:00] VITALS: BP 94/59; TEMP 97.9; O2SAT 99
[2023-07-22] MEDS: CARBIDOPA/LEVODOPA 10/100 MG 1 UDTAB PO SCH ×2 (08:04→17:25)
[2023-07-22] MEDS: OXYBUTYNIN CHLORIDE 5 MG TABLET PO SCH ×2 (08:04→17:25)
[2023-07-22] MEDS: AZITHROMYCIN 500 MG in IV D5W 250 ML IV SCH (08:15)
[2023-07-22] MEDS: HEPARIN SODIUM, PORCINE 5000 UNITS/1 ML VIAL SQ SCH ×2 (09:00→21:00)
[2023-07-22] MEDS ORDERED: POTASSIUM CL. PREMIX PERIPHER. 50 ML IV SCH (10:30)
[2023-07-22] MEDS: CEFEPIME 1 GM in IV D5W 50 ML IV SCH (10:31)
[2023-07-22 11:58] LABS: LYMPHOCYTES % (MANUAL) 3 % (16-48); MONOCYTES % (MANUAL) 9 % (0-11.0); NEUTROPHILS % (MANUAL) 88 (42-76)
[2023-07-22 11:59] LABS: PLATELET ESTIMATE DECREASED
[2023-07-22 12:00] VITALS: BP 79/41; TEMP 98; O2SAT 95
[2023-07-22 12:00] LABS: TEAR DROP CELLS 1+
[2023-07-22 16:00] VITALS: BP 92/48; TEMP 98; O2SAT 95
[2023-07-22 20:00] VITALS: BP 95/66; TEMP 98.1; O2SAT 98
[2023-07-23] VITALS: BP 100/59; TEMP 98; O2SAT 99
[2023-07-23 04:00] VITALS: BP 95/57; TEMP 98; O2SAT 96
[2023-07-23 06:43] LABS: ALANINE AMINOTRANSFERASE 28 U/L (12-78); ALBUMIN 1.9 g/dL (3.4-5.0); ALKALINE PHOSPHATASE 55 U/L (46-116); ASPARTATE AMINOTRANSFERASE 93 U/L (15-37); BILIRUBIN,TOTAL 0.5 mg/dL (0.2-1.0); CALCIUM, SERUM 9.3 mg/dL (8.5-10.1); CARBON DIOXIDE 17 mmol/L (21-32); CREATININE 1.8 mg/dL (0.6-1.3); GLUCOSE 140 mg/dL (74-106); TOTAL PROTEIN, SERUM 5.4 g/dL (6.4-8.2)
[2023-07-23 06:46] LABS: POTASSIUM 3.5 mmol/L (3.5-5.1); SODIUM SERUM 155 mmol/L (136-145)
[2023-07-23 06:50] LABS: EOSINOPHILS % (AUTO) 0.1 % (0.0-6.0); HEMATOCRIT 36 % (33-45); HEMOGLOBIN 12.2 g/dL (11.5-14.8); LYMPHOCYTES # (AUTO) 0.5 K/uL (0.8-4.8); LYMPHOCYTES % (AUTO) 4.5 % (20.0-44.0); MEAN CORPUSCULAR HEMOGLOBIN 32 PG (26.0-33.0); MEAN CORPUSCULAR HGB CONC 34 g/dl (31.0-36.0); MEAN CORPUSCULAR VOLUME 94 fL (82-100); MONOCYTES # (AUTO) 0.5 K/uL (0.1-1.30); MONOCYTES % (AUTO) 4.5 % (2.0-12.0); NEUTROPHILS # (AUTO) 10.3 K/uL (1.8-8.9); NEUTROPHILS % (AUTO) 90.9 % (43.0-81.0); PLATELET COUNT (AUTO) 90 K/uL (150-450); RED BLOOD CELL COUNT(AUTO) 3.85 MIL/uL (4.0-5.2); RED CELL DISTRIBUTION WIDTH 13.4 % (11.5-15.0); WHITE BLOOD COUNT (AUTO) 11.3 K/uL (4.3-11.0)
[2023-07-23 07:00] LABS: CHLORIDE 126 mmol/L (98-107)
[2023-07-23 07:01] LABS: UREA NITROGEN, BLOOD 122 mg/dL (7-18)
[2023-07-23 07:07] LABS: CREATININE KINASE (CK),MB 25.3 ng/mL (0.0-5.3)
[2023-07-23 08:00] VITALS: BP 87/68; TEMP 98.2; O2SAT 98
[2023-07-23 08:07] LABS: *SPE A/G RATIO 0.9 (0.7-1.7); *SPE ALPHA-1-GLOBULIN 0.4 g/dL (0.0-0.4); *SPE ALPHA-2-GLOBULIN 0.7 g/dL (0.4-1.0); *SPE BETA GLOBULIN 0.6 g/dL (0.7-1.3); *SPE GLOBULIN, TOTAL 2.3 g/dL (2.2-3.9); *SPE M-SPIKE Not Observed g/dL (Not Observed); *SPE PROTEIN TOTAL 4.3 g/dL (6.0-8.5); *SPEGAMMA GLOBULIN 0.5 g/dL (0.4-1.8)
[2023-07-23] MEDS ORDERED: IV D5W 1,000 ML IV ONE (09:00)
[2023-07-23] MEDS: HEPARIN SODIUM, PORCINE 5000 UNITS/1 ML VIAL SQ SCH (09:00)
[2023-07-23] MEDS: OXYBUTYNIN CHLORIDE 5 MG TABLET PO SCH (09:01)
[2023-07-23] MEDS: CARBIDOPA/LEVODOPA 10/100 MG 1 UDTAB PO SCH (09:01)
[2023-07-23] MEDS: CEFEPIME 1 GM in IV D5W 50 ML IV SCH (09:01)
[2023-07-23] MEDS: LEVOTHYROXINE SODIUM 50 MCG TABLET PO SCH (09:01)
[2023-07-23] MEDS: AZITHROMYCIN 500 MG in IV D5W 250 ML IV SCH (10:07)
[2023-07-23] MEDS ORDERED: IV D5W 1,000 ML IV SCH (11:30)
[2023-07-23 12:00] VITALS: BP 88/38; TEMP 98; O2SAT 98
[2023-07-23 12:04] LABS: LYMPHOCYTES % (MANUAL) 2 % (16-48); MONOCYTES % (MANUAL) 1 % (0-11.0); MYELOCYTES % 2 % (0-0); NEUTROPHILS % (MANUAL) 95 (42-76); PLATELET ESTIMATE DECREASED
== END 2023-07-23 13:04 | disposition hospice, home (50) | DRG 871 ==
LOC: ER 15:22 → TELE1 21:35
PROVIDERS: ADMIT Internal Medicine; ATTEND Internal Medicine
DX: A41.9 Sepsis, unspecified organism (principal); E43 Unspecified severe protein-calorie malnutrition; G93.41 Metabolic encephalopathy; N17.0 Acute kidney failure with tubular necrosis; E87.0 Hyperosmolality and hypernatremia; E87.20 Acidosis, unspecified; J21.9 Acute bronchiolitis, unspecified; N13.6 Pyonephrosis; R64 Cachexia; Z68.1 Body mass index [BMI] 19.9 or less, adult; R65.20 Severe sepsis without septic shock; D64.9 Anemia, unspecified; D69.6 Thrombocytopenia, unspecified; E03.9 Hypothyroidism, unspecified; E86.9 Volume depletion, unspecified; E87.5 Hyperkalemia; E88.09 Other disorders of plasma-protein metabolism, not elsewhere classified; H54.7 Unspecified visual loss; M79.7 Fibromyalgia; G20.A1 Parkinson's disease without dyskinesia, without mention of fluctuations; M89.8X9 Other specified disorders of bone, unspecified site; N18.9 Chronic kidney disease, unspecified; N31.9 Neuromuscular dysfunction of bladder, unspecified; R13.10 Dysphagia, unspecified; Z87.440 Personal history of urinary (tract) infections; Z88.0 Allergy status to penicillin; E83.9 Disorder of mineral metabolism, unspecified; N30.91 Cystitis, unspecified with hematuria; R33.9 Retention of urine, unspecified
CPT/HCPCS: 36415; 70450-TC; 71045-TC; 71250-TC; 76770-TC; 80048-TC; 80053-TC; 80076-TC; 81001; 82010-TC; 82550-TC; 82553; 82803-TC; 82962-TC; 83605-TC; 83735-TC; 83880; 83970; 84100-TC; 84155; 84165; 84484-TC; 85025-TC; 85730-TC; 86803; 87040-TC; 87086-TC; 87806; 92526; 92611-TC; A4223; G0378; J0456; J0610; J0692; J1644; J1815; J1940; J3370; J3480; J3490; J7030; J7040; J7050; J7060; J7070